=== PATIENT | female | born 2005 | race Caucasian/White ===

== ENCOUNTER 2024-12-18 17:57 | Emergency (ER) | payer MEDICAID ==
[~2024-12-18] VITALS: Ht 162.6 cm; Wt 67.6 kg
[2024-12-18] MEDS ORDERED: ONDANSETRON HCL/PF 4 MG/2 ML VIAL ONE (19:05)
[2024-12-18] MEDS: IV NS 0.9% 1,000 ML BAG IV ONE (19:20)
[2024-12-18] MEDS: ONDANSETRON HCL/PF 4 MG/2 ML VIAL IV ONE (19:24)
[2024-12-18 19:30] LABS: PLATELET COUNT (AUTO) 295 K/uL (150-450); RED BLOOD CELL COUNT(AUTO) 3.98 MIL/uL (4.0-5.2); RED CELL DISTRIBUTION WIDTH 12.5 % (11.5-15.0); WHITE BLOOD COUNT (AUTO) 8.8 K/uL (4.3-11.0)
[2024-12-18 19:41] LABS: CALCIUM, SERUM 9.0 mg/dL (8.5-10.1); CREATININE 0.8 mg/dL (0.6-1.3); SODIUM SERUM 142.0 mmol/L (136-145); UREA NITROGEN, BLOOD 7.0 mg/dL (7-18)
[2024-12-18 19:48] LABS: ASPARTATE AMINOTRANSFERASE 12.0 U/L (15-37); TOTAL PROTEIN, SERUM 7.4 g/dL (6.4-8.2)
[2024-12-18 20:24] LABS: APPEARANCE,URINE SLIGHTLY CLOUDY (CLEAR); BLOOD, URINE 2+ Ery/uL (NEGATIVE); LEUKOCYTE ESTERASE ,URINE 1+ (NEGATIVE); NITRITE, URINE NEGATIVE (NEGATIVE); UGLUCOSE NEGATIVE (NEGATIVE)
[2024-12-18 20:25] LABS: PREGNANCY TEST URINE QUAL NEGATIVE (NEGATIVE)
[2024-12-18 20:28] LABS: SQUAMOUS EPITHELIAL CELL,UR Many /HPF (None Seen)
[2024-12-18 20:30] LABS: ADD URINE CULTURE YES
[2024-12-18] MEDS ORDERED: LEVO750T46 PO (21:34)
[2024-12-18] MEDS: CEFTRIAXONE 1GM BAG (ER ONLY) 1 GM/50 ML PIGGYBACK IV ONE (22:23)
[2024-12-18 22:24] VITALS: BP 122/66; TEMP 98.3; O2SAT 100
== END 2024-12-18 22:24 | disposition home or self-care (01) ==
LOC: ER 18:01
DX: N12 Tubulo-interstitial nephritis, not specified as acute or chronic (principal); Z87.440 Personal history of urinary (tract) infections; R11.0 Nausea
CPT/HCPCS: 99284; 96360; 76700; 85025; 80048; 83690; 80076; 84703; 81001; 36415; J7030; J2405